=== PATIENT | male | born 1975 | race African-American/Black ===

== ENCOUNTER 2019-07-02 08:21 | Emergency (ER) | payer OTHER ==
[~2019-07-02] VITALS: Ht 175.3 cm; Wt 98.0 kg
[2019-07-02] MEDS ORDERED: SPIRIVA INH (08:33)
[2019-07-02] MEDS ORDERED: BREO ELLIPTA 11 EACH INH (08:34)
[2019-07-02 09:20] VITALS: BP 155/102
== END 2019-07-02 09:21 | disposition home or self-care (01) ==
LOC: ER 08:21
DX: R06.02 Shortness of breath (principal)